=== PATIENT | male | born 1940 | race Caucasian/White ===

== ENCOUNTER 2017-06-28 07:20 | Day surgery (SDC) | payer MEDICARE, BC ==
[~2017-06-28 07:20] MED LIST: ACETAMINOPHEN 1,000 MG/100 ML BTL IV ONE; CEFAZOLIN 2 Gram 2 GM/50 ML BAG IVPB ONE
[2017-06-28] MEDS ORDERED: FENTANYL PF 100MCG/2ML VIAL IV ONE (07:21)
[2017-06-28] MEDS ORDERED: PROPOFOL 10 MG/ML VIAL IV ONE (07:21)
[2017-06-28] MEDS ORDERED: MIDAZOLAM HCL 2MG/2ML VIAL IV ONE (07:21)
[2017-06-28] MEDS ORDERED: BUPIVACAINE 0.25% W/EPI MPF 30ML VIAL IVP ONE (07:21)
[2017-06-28] MEDS ORDERED: EPHEDRINE SULFATE 50 MG/ML ML IV ONE (07:21)
[2017-06-28] MEDS ORDERED: DESFLURANE 240 ML BTL INH ONE (07:21)
[2017-06-28] MEDS ORDERED: DEXAMETHASONE 4 MG/ML 1ML VIAL IVP ONE (07:21)
[2017-06-28] MEDS ORDERED: ROPIVACAINE HCL (NAROPIN) /PF 5MG/ML 20ML VIAL IV ONE (07:21)
[2017-06-28] MEDS ORDERED: KETOROLAC 30 MG/ML VIAL IVP ONE (07:21)
[2017-06-28 07:35] LABS: BASO % 0.5 % (0-6); EOS % 3.1 % (0-6); GRAN % 58.3 % (47-80); HEMATOCRIT 44.4 % (42.0-52.0); HEMOGLOBIN 14.2 gm/dl (14.0-18.0); LYMPH % 25.7 % (16-45); MEAN CELL VOLUME 92.3 fl (81-97); MEAN CORPUSCULAR HEMOGLOBIN 29.5 pg (27-33); MEAN PLATELET VOLUME 10.2 fl (7.4-10.4); MONO % 12.4 % (0-9); PLATELET COUNT 211 K/uL (130-400); RED BLOOD COUNT 4.81 M/uL (4.40-5.70); RED CELL DISTRIBUTION WIDTH 13.9 % (11.5-14.5); WHITE BLOOD COUNT W/O DIFF 8.4 K/uL (4.2-12.2)
[2017-06-28 07:51] LABS: BLOOD UREA NITROGEN 26 mg/dL (8-23); CREATININE 0.8 mg/dL (0.7-1.2); EST GLOMERULAR FILTRATION RATE > 60 mL/min; GLUCOSE,RANDOM 123 mg/dL (74-109)
--- NOTE | 2017-06-29 13:00 | Operative Note ---
DATE OF SURGERY: 06/28/2017 Surgeon: Billy Smith DO PREOPERATIVE DIAGNOSIS: Reducible right inguinal hernia. POSTOPERATIVE DIAGNOSIS: Reducible right inguinal hernia. OPERATION: Open right inguinal herniorrhaphy with mesh, indirect hernia. Indication: The patient is a 76-year-old male who presented to the clinic with pain and bulging in his right inguinal region. Clinically he had a sizable reducible hernia. We did discuss repair; risks, benefits, and alternatives. His risks include but are not limited to bleeding, infection, acute or chronic pain, recurrence. He understood this fully. PROCEDURE: Thereafter consent was signed and questions answered. He was taken to the operating room and placed in a supine position. General anesthesia was administered per the department of anesthesia. The patient's right inguinal region was shaved of hair and prepped and draped in a sterile fashion. The oblique region was anesthetized with 5 mL of 0.25% Sensorcaine with epinephrine. He also underwent a preoperative block per the department of anesthesia. A 4 cm oblique incision was made. This was carried down through the subcutaneous tissue through the Tamra layer to the aponeurosis of the external oblique. A bambi was made with a scalpel blade, enlarged through the superficial inguinal ring with Metzenbaum scissors. Care was taken not to injure the underlying ilioinguinal nerve or spermatic cord. At this time, superior and inferior flaps were developed and a Дмитрий was placed on the spermatic cord and dissected free from the underlying transversalis fascia. At this time, the floor was inspected and noted to be free of any direct herniation. Cremasteric fiber was taken down. There was a moderate-size indirect hernia sac as well as cord lipoma. High ligations of each were done. At this time, a right-sided ProGrip mesh was obtained. This was placed in the floor of the inguinal canal with excellent overlap of the pubic tubercle. Sutures went at the level of pubic tubercle, the second portion of the inguinal ligament, and the anterior oblique aponeurosis. The lateral triangle was protected with the lateral aspect of the mesh. At this time, the aponeurosis was closed over the cord with 2-0 Vicryl, the Tamra layer was closed with 3-0 Vicryl, and skin was closed with 4-0 Vicryl. Steri-Strips were applied. He was taken to the recovery room in satisfactory condition. FINDINGS ON SURGERY: Right inguinal hernia, indirect, with accompanying cord lipoma. CC: DO JUNI Riggs
== END 2017-06-28 11:50 | disposition home or self-care (01) ==
LOC: SUR 07:20
PROVIDERS: ATTEND Surgery
DX: K40.90 Unilateral inguinal hernia, without obstruction or gangrene, not specified as recurrent (principal); I10 Essential (primary) hypertension; I25.10 Atherosclerotic heart disease of native coronary artery without angina pectoris; I73.9 Peripheral vascular disease, unspecified
CPT/HCPCS: 49505; 00830; 64425; 85025; 80048; J1885; J3010; J0690; J2795